=== PATIENT | male | born 1975 | race Caucasian/White ===

== ENCOUNTER 2017-11-01 13:28 | Day surgery (SDC) | payer OTHER ==
[~2017-11-01] VITALS: Ht 180.3 cm; Wt 79.4 kg
--- NOTE | 2017-11-01 13:59 | NUR ---
PT ALERT, ORIENTED AND SUPPORTED BY HIS ZAHIDA. FIRST SURGERY FOR PT, OUTLINED THE PROCESS AND WHAT TO EXPECT. JUANCARLOS FISH WAITED JUST A MOMENT WHILE I FINISHED PRAYING FOR PT. WILL FOLLOW ASNEEDED
[2017-11-01] MEDS ORDERED: HYDROCODON-ACE1 EA11 PO (15:08)
--- NOTE | 2017-11-01 15:33 | NUR ---
11/01/17 1533 Bri Seals 1510 RESP EVEN AND UNLABORED. PT REACTIVE. 1525 O2 REMOVED, O2 SAT 100%. 1532 PT TAKING SMALL SIPS OF WATER.
--- NOTE | 2017-11-01 15:57 | NUR ---
PT ARRIVES TO DS RM 12 ALERT AND ORIENTED, IN NO APPARENT DISTRESS. REPORT GIVEN, AND PT REQUESTS TO USE BR. PT AMBULATES WELL WITH USE OF CRUTCHES. PT REPORTS HIS BLADDER FEELS EMPTY WITH NO CONCERNS.
--- NOTE | 2017-11-01 16:14 | NUR ---
PT AT BEDSIDE. PT STATES HE IS HUNGRY, PUDDING AND JELLO PROVIDED. PT STATES HE IS IN NO PAIN "JUST HAS SOME DISCOMFORT." CALL LIGHT WITHIN REACH, NO FURTHER COMPLAINTS AT THIS TIME.
--- NOTE | 2017-11-01 17:05 | NUR ---
PT TOLERATED PUDDING, JELLO AND CRACKERS WELL. DR MCKAY GAVE MED SCRIPT TO AFTER SURGERY. PT STATES HIS PAIN IS WELL TOLERATED BY BLOCK, EDUCATION GIVEN REGARDING PAIN AND KEEPING AHEAD OF IT. DC INSTUCTIONS GIVEN IN THE PRESENCE OF PT AND , PT VERBALIZED UNDERSTANDING AND ALL QUESTIONS ANSWERED. PT DC'S VIA WHEELCHAIR FROM DS RM 12 TO HOME WITH .
--- NOTE | 2017-11-02 09:05 | OR ---
[facility] [address] [place], [place] [address] Signed DATE OF OPERATION: 11/01/2017 SURGEON: Florinda Velasco MD PREOPERATIVE DIAGNOSIS: Displaced 2nd metatarsal fracture of left foot. POSTOPERATIVE DIAGNOSIS: Displaced 2nd metatarsal fracture of left foot. PROCEDURE PERFORMED: Open reduction and internal fixation of left 2nd metatarsal. LABORER LABORATORY: YESIKA Mckinley was present for the entire procedure, was critical for positioning, retraction, and wound closure. ANESTHESIA: General. TOURNIQUET TIME: Approximately 30 minutes. IMPLANTS: 2.06 hole plate with six screws. BRIEF HISTORY: Aidan is a 41-year-old gentleman with progressive displacement of the 2nd metatarsal fracture. This was displaced in both planes and angulated. Risks and benefits of operative treatment were discussed with him. He elected to proceed. DESCRIPTION OF PROCEDURE: Once consent was obtained, he was taken to the operating room. After adequate anesthesia, he was placed on operating room table. All downside pressure points were well padded. The left foot was prepped and draped in a standard sterile fashion up to a well-padded proximal thigh tourniquet. The leg was then exsanguinated using Esmarch bandage. Tourniquet inflated to 250 mmHg. The fracture was identified on the C-arm and a 4 cm incision was made overlying this, carried through skin and subcutaneous tissue. Electronically Signed By: FLORINDA VELASCO MD 11/02/17 0905 PATIENT NAME: AIDAN JAVIER OPERATIVE REPORT DATE OF : 73 PHYSICIAN: FLORINDA VELASCO MD REPORT #: [id number] REPORT IS CONFIDENTIAL AND NOT TO BE RELEASED WITHOUT AUTHORIZATION [address] [address] Signed Care was taken to mobilize the extensor tendon and we then incised the periosteum and elevated off the bone. The fracture was distracted and cleaned of debris. It was then reduced and held in position. The plate was aligned with dorsal slightly medial aspect of the bump of the metatarsal. It was held with a single screw. This was checked using image intensifier and alignment was adjusted. Remaining screw holes were drilled and appropriate length screws were placed. Final radiographs showed good alignment, good screw length, and anatomic reduction. Wound was copiously irrigated with antibiotic solution. Periosteum was closed with 3-0 Vicryl, subcutaneous tissue with 3-0 Vicryl, and skin with 3-0 nylon. The wound was dressed with an Adaptic, ABD, and Paco wrap. He was placed back in his fracture boot, taken to recovery room in satisfactory condition. All sponge, needle, and instrument counts were correct. Florinda Velasco MD BA/YARITZAL /[id number] Electronically Signed By: FLORINDA VELASCO MD 11/02/17 0905 PATIENT NAME: AIDAN JAVIER OPERATIVE REPORT DATE OF : 73 PHYSICIAN: FLORINDA VELASCO MD REPORT #: [id number] REPORT IS CONFIDENTIAL AND NOT TO BE RELEASED WITHOUT AUTHORIZATION
== END 2017-11-01 17:05 | disposition home or self-care (01) ==
LOC: OPS 13:28 → DS 14:30 → OPS 14:30
PROVIDERS: Specialist
PROC: 0QSP04Z Reposition Left Metatarsal with Internal Fixation Device, Open Approach (ICD-10-PCS; principal; 2017-11-01 14:30)
DX: S92.322A Displaced fracture of second metatarsal bone, left foot, initial encounter for closed fracture (principal); Z88.2 Allergy status to sulfonamides; Z98.52 Vasectomy status
CPT/HCPCS: 01480; 62322; 64445; 73620; 76942; C1713; J0690; J1100; J2250; J2405; J2704; J2795; J3010; J7120